=== PATIENT | female | born 1970 ===

== ENCOUNTER 2020-03-07 12:15 | Outpatient (REF) | payer MEDICAID, SELFPAY ==
[2020-03-07 21:45] LABS: Abs Immature Grans 0.03 10^3/uL (0.0-0.06); Absolute Basophil Count 0.06 10^3/uL (0.0-0.2); Absolute Eosinophil Count 0.05 10^3/uL (0.0-0.7); Absolute Lymphocyte Count 1.67 10^3/uL (1.2-3.4); Absolute Monocyte Count 0.66 10^3/uL (0.1-0.8); Absolute Neutrophil Count 9.35 10^3/uL (1.2-6.7); Basophils % 0.5; Eosinophils % 0.4; HCT 46.7 % (36.0-46.0); HGB 15.9 g/dL (11.2-15.7); Immature Grans % 0.3; Lymphocytes % 14.1; MCH 34.4 pg (27.0-33.0); MCV 101.1 fL (80-95); MPV 9.5 fL (8.0-11.0); Monocytes % 5.6; Neutrophils % 79.1; Nucleated RBC 0 %; Platelet Count 298 10^3/uL (130-400); RBC 4.62 10^6/uL (3.93-5.22); RDW 13.2 % (11.7-14.6); RDW-SD 49.3 fL; WBC 11.82 10^3/uL (4.4-10.8)
[2020-03-07 21:52] LABS: ALT 21 U/L (14-59); AST 22 U/L (15-37); Albumin 4.2 g/dL (3.4-5.0); Alkaline Phosphatase 91 U/L (46-116); Anion Gap 9.8 mmol/L (3-11); BUN 13 mg/dL (7-18); Bilirubin, Total 0.4 mg/dL (0.2-1.0); CO2 28.2 mmol/L (21.0-32.0); CREATININE 0.87 mg/dL (0.55-1.02); Calcium 9.6 mg/dL (8.5-10.1); Chloride 99 mmol/L (98-107); Glucose 88 mg/dL (74-106); Potassium 4.2 mmol/L (3.5-5.1); Sodium 137 mmol/L (136-145); TSH 1.64 uIU/mL (0.36-3.74); Total Protein 7.1 g/dL (6.4-8.2)
== END 2020-03-07 12:35 ==
LOC: NCHCN 12:15
PROVIDERS: Visit Provider Nurse Practitioner Community Health
DX: Z13.29 Encounter for screening for other suspected endocrine disorder (principal); Z13.228 Encounter for screening for other metabolic disorders; Z01.818 Encounter for other preprocedural examination
CPT/HCPCS: 80053; 84443; 85025